=== PATIENT | male | born 1980 | race Caucasian/White ===

== ENCOUNTER 2019-06-27 03:08 | Emergency (ER) | payer SELFPAY ==
[2019-06-27 03:50] LABS: #Basophils 0.1 thou/uL (0.0-0.2); #Eosinphils 0.2 thou/uL (0.0-0.7); #Lymphocytes 3.7 thou/uL (1.20-3.40); #Monocytes 0.6 thou/uL (0.11-0.59); #Neutrophils 3.9 thou/uL (1.40-6.50); %Basophils 1.1 % (0.0-1.0); %Eosinophils 2.3 % (0.0-10.0); %Lymphocytes 43.9 % (21.0-51.0); %Monocytes 6.8 % (0.0-10.0); %Neutrophils 45.9 % (42.0-75.0); Hemoglobin 15.3 g/dL (14.0-18.0); Mean Corpuscular HGB CONC 34.8 g/dL (32.0-36.0); Mean Corpuscular Hemoglobin 31.2 pg (27.0-31.0); Mean Corpuscular Volume 89.8 fL (78.0-98.0); Mean Platelet Volume 7.2 fL (7.4-10.4); Platelet Count 227 thou/uL (130-400); RBC Distribution Width 11.7 % (11.5-14.5); White Blood Cell (WBC) Count 8.5 thou/uL (4.8-10.8)
[2019-06-27] MEDS ORDERED: Acetaminophen 500 MG TAB ONE (03:52)
[2019-06-27 04:11] LABS: ALT (SGPT) 28 U/L (8-55); AST (SGOT) 14 U/L (5-34); Alkaline Phosphatase 96 U/L (40-110); Anion Gap 13 mmol/L (10-20); BUN (Urea Nitrogen) 13 mg/dL (8.9-20.6); Bilirubin, Total 0.3 mg/dL (0.2-1.2); CK (CPK) 106 U/L (30-200); Calc. Creatinine Clearance 0 mL/min (70-130); Carbon Dioxide 24 mmol/L (22-29); Chloride 102 mmol/L (98-107); Estimated GFR-MDRD 89; Globulin 2.8 g/dL (2.4-3.5); Glucose 105 mg/dL (70-105); Potassium 3.5 mmol/L (3.5-5.1); Protein, Total 6.8 g/dL (6.0-8.3); Sodium 135 mmol/L (136-145)
[2019-06-27] MEDS ORDERED: Aspirin Chewable 81 MG TAB ONE (04:13)
--- NOTE | 2019-06-27 07:43 | RAD ---
RADIOGRAPH CHEST 1 VIEW: DATE: 06/27/2019 HISTORY: 38-year-old male with chest pain FINDINGS: There are no airspace densities, pulmonary edema, pneumothorax, or cardiomegaly. The lateral costophr enic angles are sharp. IMPRESSION: No acute cardiopulmonary findings.
--- NOTE | 2019-06-27 07:43 | ULT ---
PRELIMINARY REPORT/[facility]/EMERGENCY AFTER HOURS PROCEDURE: PROCEDURE INFORMATION: Exam: US Duplex Right Lower Extremity Veins, Limited Exam date and time: 06/27/2019 4:56 AM Clinical history: 38 years old, male; Other: RT knee pain TECHNIQUE: Imaging protocol: Real-time Duplex ultrasound of the Right Lower Extremity with 2-D shepherd scale, color Doppler flow and spectral waveform analysis with image documentation. Limited exam was focused on the right lower extremity veins. COMPARISON: No relevant prior studies available. FINDINGS: Right deep veins: Unremarkable. The common femoral, femoral, proximal profunda femoral and popliteal veins are patent without thrombus. Normal Doppler waveforms. Normal compressibility and/or augmentation response. Right superficial veins: Unremarkable. Saphenofemoral junction is patent without thrombus. Soft tissues: Unremarkable. IMPRESSION: No acute findings. No evidence of deep vein thrombosis. Thank you for allowing us to participate in the care of your patient. Dictated and Authenticated by: Mati Craig MD 06/27/2019 5:23 AM Central Time ([place] & [place]) FINAL REPORT: EMERGENCY AFTER HOURS STUDY: ULTRASOUND DOPPLER DUPLEX VENOUS RIGHT LOWER EXTREMITY: DATE: 06/27/2019. HISTORY: 38-year-old male with right lower extremity pain. TECHNIQUE: Grayscale, color-flow, and spectral analysis, of major veins of right lower extremity. FINDINGS: There is demonstration of blood flow with normal compressibility, of the right common femoral, profun da femoral, greater saphenous, femoral, popliteal, and posterior tibial, veins. Agree with preliminary report by [facility]. IMPRESSION: Negative. No deep venous thrombosis of right lower extremity. Transcribed Date/Time: 06/27/2019 7:54 AM
--- NOTE | 2019-06-27 09:42 | CT ---
PRELIMINARY REPORT/[facility]/EMERGENCY AFTER HOURS PROCEDURE: PROCEDURE INFORMATION: Exam: CT Angiography Chest With Contrast Exam date and time: 06/27/2019 3:44 AM Clinical history: 38 years old, male; Patient HX: Er 2. Patient reports chest pain starting here in e r. Lef t side of chest. Repots he has had a blood clot in leg in past. TECHNIQUE: Imaging protocol: Computed tomographic angiography of the chest with intravenous contrast. 3D rendering: MIP reconstructed images were created and reviewed. COMPARISON: No relevant prior studies available. FINDINGS: Pulmonary arteries: Normal. No pulmonary emboli. Aorta: Unremarkable. No aortic aneurysm. No aortic dissection. Lungs: Lungs are clear allowing for expiratory phase imaging. Pleural space: Unremarkable. No pneumothorax. No pleural effusion. Heart: Unremarkable. No cardiomegaly. No pericardial effusion. Lymph nodes: Mildly prominent mediastinal lymph nodes do not exceed 1 cm in short axis. Bones/joints: Unremarkable. No acute fracture. Soft tissues: Unremarkable. IMPRESSION: No acute findings. Thank you for allowing us to participate in the care of your patient. Dictated and Authenticated by: Mati Craig MD 06/27/2019 4:19 AM Central Time ([place] & [place]) FINAL REPORT CTA CHEST WITH CONTRAST: Axial tomograms were obtained with multiplanar reconstruction and 3D postprocessing. FINDINGS: No evidence of pulmonary embolus. Thoracic aorta unremarkable. Lungs show no acute or confluent inf iltrate. I am in agreement with the preliminary report.
[2019-06-27] MEDS ORDERED: ISOVUE-370 76%-LOCM 1 ML ONE (12:33)
== END 2019-06-27 07:02 | disposition home or self-care (01) ==
LOC: ERS 03:08
DX: R07.89 Other chest pain (principal); M25.562 Pain in left knee; I25.2 Old myocardial infarction; I11.0 Hypertensive heart disease with heart failure; I50.9 Heart failure, unspecified; F17.210 Nicotine dependence, cigarettes, uncomplicated; Z79.82 Long term (current) use of aspirin; Z79.899 Other long term (current) drug therapy; Z79.01 Long term (current) use of anticoagulants
CPT/HCPCS: 36415; 71045; 71275; 80053; 82550; 84484; 85025; 93005